=== PATIENT | female | born 1940 | race Caucasian/White ===

== ENCOUNTER 2017-07-05 19:32 | Inpatient (IN) | payer OTHER ==
[~2017-07-05] VITALS: Ht 152.4 cm; Wt 52.6 kg
[2017-07-05 20:04] LABS: BASOPHILS % (AUTO) 0.6 % (0.0-2.0); EOSINOPHILS # (AUTO) 0.1 K/uL (0.0-0.7); EOSINOPHILS % (AUTO) 1.7 % (0.0-7.0); HEMATOCRIT 30.4 % (37-47); HEMOGLOBIN 10.2 G/DL (12.0-16.0); LYMPHOCYTES # (AUTO) 1.8 K/UL (0.8-4.8); LYMPHOCYTES % (AUTO) 22.4 % (20.5-51.5); MEAN CORPUSCULAR HEMOGLOBIN 31.8 UUG (27.0-31.0); MEAN CORPUSCULAR HGB CONC 34 g/dL (32.0-37.0); MEAN CORPUSCULAR VOLUME 94.9 FL (81.0-99.0); MONOCYTES # (AUTO) 0.9 K/UL (0.1-1.30); MONOCYTES % (AUTO) 10.9 % (0.0-11.0); NEUTROPHILS # (AUTO) 5.3 K/UL (1.8-8.9); NEUTROPHILS % (AUTO) 64.4 % (38.5-71.5); PLATELET COUNT (AUTO) 274 K/UL (150-450); WHITE BLOOD COUNT (AUTO) 8.1 K/UL (4.0-11.2)
[2017-07-05] MEDS ORDERED: CALC-12 PO (20:04)
[2017-07-05] MEDS ORDERED: ALPR0.5T8 PO (20:04)
[2017-07-05] MEDS ORDERED: METF500T4 PO (20:04)
[2017-07-05 20:16] LABS: CARBON DIOXIDE 28 mmol/L (21-32); CHLORIDE 104 mmol/L (98-107); CREATININE 1.3 mg/dL (0.6-1.3); GLUCOSE 156 mg/dL (74-106); POTASSIUM 4.5 mmol/L (3.5-5.1); UREA NITROGEN, BLOOD 28 mg/dL (7-18)
[2017-07-05 20:22] LABS: ALANINE AMINOTRANSFERASE 15 U/L (14-59); ALKALINE PHOSPHATASE 58 U/L (50-136); ASPARTATE AMINOTRANSFERASE 15 U/L (15-37); BILIRUBIN,DIRECT 0.1 mg/dL (0.0-0.2); BILIRUBIN,TOTAL 0.3 mg/dL (0.2-1.0)
[2017-07-05 20:24] LABS: ACETAMINOPHEN < 2.0 ug/mL (10-30)
[2017-07-05 20:33] LABS: ETHANOL < 3 MG/DL (0-0)
--- NOTE | 2017-07-05 20:49 | NUR ---
Pt. admitted to [facility], under care of Dr. Estevez Belongs List completed
--- NOTE | 2017-07-05 20:55 | NUR ---
Admitted 77 year old female to from home in [place], [place] to [facility] nursing staff via jon. Pt is on a 5150 hold due to patient is delusional, believes that granddaughter wants to kill her and was up all night arguing with the voices. Per hold, patient sees a little girl and stated "my friend is telling me not to eat because you have poison my food." hold started on 07/06/17 at 1730 and will end on 07/08/17 at 1730. Patient is legally blind. She has Dx: HTN and DM. Patient is A/O x 2 and in no distress. She is Haitian speaker. She was compliant with admission process and provided information; however, she was unable to sign papers due to blindness. Son was present in the unit at time of admission. She requested something to eat; a Sugar-free pudding and diet cranberry juice was given to patient. Patient needs help with ambulation and ADL as she is legally blind. Patient's skin is warm dry and intact except for fungal toenail. Pt will be referred to Business Analysis [facility]st. Pr is under the care of Dr Gonzalez and Dr. Ramos. will continue to monitor. Addendum: 07/06/17 at 0653 by OBDULIA BELLAMY RN Per patient, she is blind due to cataracts in both eyes.
[2017-07-05 20:57] LABS: *BILIRUBIN,URIN NEGATIVE (NEGATIVE); *BLOOD, URINE NEGATIVE (NEGATIVE); *COLOR,URINE YELLOW (YELLOW); *KETONES,URINE NEGATIVE (NEGATIVE); *PROTEIN,URINE TRACE (NEGATIVE); *UROBILINOGEN,URINE 0.2 E.U./dl (NORMAL); LEUKOCYTE ESTERASE ,URINE 1+ (NEGATIVE); NITRITE, URINE NEGATIVE (NEGATIVE); PH,URINE 6.5 (5.0-8.0); UGLUCOSE NEGATIVE (NEGATIVE)
[2017-07-05 21:06] LABS: *CLARITY,URINE SLIGHTLY HAZY (CLEAR)
[2017-07-05 21:07] LABS: *AMPHETAMINE, URINE NEGATIVE (NEGATIVE); *BARBITURATE, URINE NEGATIVE (NEGATIVE); *CANNABINOID, URINE NEGATIVE (NEGATIVE); *COCCAINE, URINE NEGATIVE (NEGATIVE); *OPIATE, URINE NEGATIVE (NEGATIVE); *PHENCYCLIDINE SCREEN,URINE NEGATIVE (NEGATIVE)
[2017-07-05 21:08] LABS: MUCUS,URINE FEW /LPF (0-FEW); RBC,URINE 0-3 /HPF (0-3); SQUAMOUS EPITHELIAL CELL,UR FEW /HPF (NONE SEEN)
--- NOTE | 2017-07-05 21:45 | NUR ---
On interview, patient denies SI, HI AH and VH. she also denies hearing voices. Pt stated: "I had a dream, it was a dream, a bad dream.". she is currently resting comfortable in her bed. will continue to monitor.
[2017-07-05] MEDS ORDERED: CAPT50TA3 PO (22:12)
[2017-07-06 02:05] VITALS: BP 120/61
--- NOTE | 2017-07-06 06:53 | NUR ---
Pt slept 6.45hrs through the night. She had a shower this morning. No behavioral problems, no AH, VS or SI noted or reported during the shift.
[2017-07-06 07:30] VITALS: BP 134/74
[2017-07-06 07:45] LABS: ALANINE AMINOTRANSFERASE 14 U/L (14-59); ALKALINE PHOSPHATASE 62 U/L (50-136); ASPARTATE AMINOTRANSFERASE 21 U/L (15-37); BILIRUBIN,TOTAL 0.4 mg/dL (0.2-1.0); CARBON DIOXIDE 26 mmol/L (21-32); CHLORIDE 106 mmol/L (98-107); CREATININE 1.2 mg/dL (0.6-1.3); GLUCOSE 127 mg/dL (74-106); POTASSIUM 4.5 mmol/L (3.5-5.1); TOTAL PROTEIN, SERUM 7.4 g/dL (6.4-8.2); UREA NITROGEN, BLOOD 26 mg/dL (7-18)
--- NOTE | 2017-07-06 09:00 | NUR ---
Pt received laying in bed AOx2. Observed laying in bed, affect flat. Still endorsing A/H non commanding. No acute distress noted. 1:1 sitter at bedside.
--- NOTE | 2017-07-06 13:25 | NUR ---
Initial discharge instructions: Pt resides at home with her granddaughter [[address],[address];[phone]].Per pt,she would like to return back home once discharged.Spoke with pt's son,Jefe Miller [phone] who reported the pt may return once stable.SW will speak with pt,son,and MD regarding appropriate discharge plans.SW will form a safe and proper discharge.
--- NOTE | 2017-07-06 13:26 | NUR ---
UR Note: LIBBY faxed current clinicals to Mariana HERNANDEZ [ / Fx:[phone]]. Tracking# [id number].
[2017-07-06 16:00] VITALS: BP 145/58
--- NOTE | 2017-07-06 16:59 | NUR ---
DR. RICHI OBRIEN CONTACTED IN REGARDS OR MEDICATION RECONCILATION. HE REPLIED THAT HE WILL DONE IT SOON.
--- NOTE | 2017-07-06 17:20 | NUR ---
Pt observed sitting on bed, affect flat. Pt is cooperative/compliant. Pt is French speaking, per sitter pt endorsing she does believe granddaughter was trying to poison her with food. denies A/V hallucinations at this time. No acute distress noted.
[2017-07-06 19:42] VITALS: BP 141/61
--- NOTE | 2017-07-07 06:26 | NUR ---
GPS: Refused Keflex 250mg PO 6am dose despite explanation of importance. Pt.is confused,disorganized and responding to internal stimuli. 1:1 sitter for safety due to being blind. Re-directed prn. Will continue to monitor.
[2017-07-07 07:30] VITALS: BP 131/63
--- NOTE | 2017-07-07 12:41 | NUR ---
UR Note: LIBBY faxed current clinicals to Mariana HERNANDEZ [ / Fx:[phone]]. Tracking# [id number].
--- NOTE | 2017-07-07 14:14 | NUR ---
patient continues to refuse food and medication pt is very delusional , in room sleeping off and on 1;1 sitter at bedside for safety. continue to provide a safe environment.
--- NOTE | 2017-07-08 06:07 | NUR ---
GPS: Continues to refuse meds.and resistant to nursing care. Easily agitated when approached or when being offered assistance. Slept for about 1/2 hour only. Responding to internal stimuli. Refused fluids/snacks when offered despite numerous attempts. Safety emphasized.
--- NOTE | 2017-07-08 11:00 | NUR ---
PATIENT CONTINUE IN HER BED SLEEPING. QHS MEDICATION WHERE WITH-HELD DUE TO PATIENT ASLEEP. PER REPORT, PATIENT SLEPT FOR ABOUT 30 MIN LAST NIGHT. SHE CONTINUE ON 1:1 SUPERVISION FOR SAFETY. WILL CONTINUE TO MONITOR.
--- NOTE | 2017-07-08 14:02 | NUR ---
UR Note: LIBBY faxed current clinicals to Mariana HERNANDEZ [ / Fx:[phone]]. Tracking# [id number].
--- NOTE | 2017-07-08 17:58 | NUR ---
PATIENT HAS BEEN REFUSING VITALS ALL SHIFT AND WHEN HER SON CAME IN HE BROUGHT TAQUITOS AND BEANS AND PT NOW EATING , STILL REFUSING MEDS, CONTINUE 1;1 TO PROVIDE A SAFE ENVIRONMENT
--- NOTE | 2017-07-09 07:24 | NUR ---
PATIENT SLEPT FOR APPROX. 9.5HRS THROUGH THE NIGHT. SHE REFUSED KEFLEX 250MG Q8HRS PO FOR UTI. SHE ALSO REFUSED BLOOD DRAWN THIS MORNING. WILL CONTINUE TO MONITOR,
[2017-07-09 15:00] VITALS: BP 150/89
[2017-07-09 20:00] VITALS: BP 182/77
--- NOTE | 2017-07-10 06:22 | NUR ---
GPS: REMAIN CALM AND COOPERATIVE WITH CARE.REFUSED ALL MEDICATION THROUGH THE NIGHT. SLEPT ONLY 30 MIN LAST NIGHT. CONTINUE ON 1:1 SITTER @ BEDSIDE FOR SAFETY.
--- NOTE | 2017-07-10 06:45 | NUR ---
GPS: patient refused food,drink and medication through the night. charge nurse made aware.
[2017-07-10 07:30] VITALS: BP 157/79
[2017-07-10 07:55] LABS: BASOPHILS % (AUTO) 0.3 % (0.0-2.0); EOSINOPHILS # (AUTO) 0.1 K/uL (0.0-0.7); EOSINOPHILS % (AUTO) 0.8 % (0.0-7.0); HEMATOCRIT 34.5 % (37-47); HEMOGLOBIN 11.3 G/DL (12.0-16.0); LYMPHOCYTES # (AUTO) 1.7 K/UL (0.8-4.8); LYMPHOCYTES % (AUTO) 16.8 % (20.5-51.5); MEAN CORPUSCULAR HEMOGLOBIN 30.9 UUG (27.0-31.0); MEAN CORPUSCULAR HGB CONC 33 g/dL (32.0-37.0); MEAN CORPUSCULAR VOLUME 94.4 FL (81.0-99.0); MONOCYTES # (AUTO) 0.7 K/UL (0.1-1.30); NEUTROPHILS # (AUTO) 7.8 K/UL (1.8-8.9); NEUTROPHILS % (AUTO) 75.1 % (38.5-71.5)
[2017-07-10 08:03] LABS: CARBON DIOXIDE 24 mmol/L (21-32); CHLORIDE 105 mmol/L (98-107); CREATININE 1.1 mg/dL (0.6-1.3); GLUCOSE 115 mg/dL (74-106); MAGNESIUM 1.8 mg/dL (1.8-2.4); PHOSPHOROUS 3.2 mg/dL (2.5-4.9); POTASSIUM 4.3 mmol/L (3.5-5.1); UREA NITROGEN, BLOOD 33 mg/dL (7-18)
[2017-07-10 08:11] LABS: PLATELET COUNT (AUTO) 307 K/UL (150-450)
[2017-07-10 08:12] LABS: RED BLOOD CELL COUNT(AUTO) 3.66 MIL/UL (4.2-5.4); WHITE BLOOD COUNT (AUTO) 10.3 K/UL (4.0-11.2)
[2017-07-10 19:55] VITALS: BP 130/62
--- NOTE | 2017-07-11 06:15 | NUR ---
GPS: REMAIN UNCOOPERATIVE WITH MEDS DIET AND CARE. CONTINUE ON 1:1 SITTER @ BEDSIDE FOR SAFETY ALL THE TIMES. SLEPT 8 HRS THROUGH THE NIGHT. TURN Q 2 HRS FOR SKIN SAFETY AND COMFORT.ASSISTED WITH ADL'S.
[2017-07-11 07:01] LABS: BASOPHILS # (AUTO) 0.1 K/uL (0.0-8.0); BASOPHILS % (AUTO) 0.5 % (0.0-2.0); EOSINOPHILS # (AUTO) 0.2 K/uL (0.0-0.7); EOSINOPHILS % (AUTO) 2.3 % (0.0-7.0); HEMATOCRIT 36.6 % (37-47); HEMOGLOBIN 12.1 G/DL (12.0-16.0); LYMPHOCYTES # (AUTO) 2.9 K/UL (0.8-4.8); LYMPHOCYTES % (AUTO) 28.3 % (20.5-51.5); MEAN CORPUSCULAR HEMOGLOBIN 31.1 UUG (27.0-31.0); MEAN CORPUSCULAR HGB CONC 33 g/dL (32.0-37.0); MEAN CORPUSCULAR VOLUME 94.2 FL (81.0-99.0); MONOCYTES # (AUTO) 0.9 K/UL (0.1-1.30); MONOCYTES % (AUTO) 8.6 % (0.0-11.0); NEUTROPHILS # (AUTO) 6.2 K/UL (1.8-8.9); NEUTROPHILS % (AUTO) 60.3 % (38.5-71.5); PLATELET COUNT (AUTO) 313 K/UL (150-450); RED BLOOD CELL COUNT(AUTO) 3.88 MIL/UL (4.2-5.4); WHITE BLOOD COUNT (AUTO) 10.3 K/UL (4.0-11.2)
[2017-07-11 07:34] LABS: CARBON DIOXIDE 27 mmol/L (21-32); CHLORIDE 106 mmol/L (98-107); CREATININE 1.2 mg/dL (0.6-1.3); GLUCOSE 127 mg/dL (74-106); PHOSPHOROUS 3.3 mg/dL (2.5-4.9); POTASSIUM 4.3 mmol/L (3.5-5.1); UREA NITROGEN, BLOOD 37 mg/dL (7-18)
[2017-07-11 07:51] VITALS: BP 170/88
--- NOTE | 2017-07-11 12:21 | NUR ---
UR Note: LIBBY faxed current clinicals to Mariana HERNANDEZ [ / Fx:[phone]]. Tracking# [id number].
[2017-07-11 17:10] VITALS: BP 171/85
--- NOTE | 2017-07-11 18:20 | NUR ---
Pt continues to be resistive to care and remains non-compliant with PO medications. Easily agitated at times. Pt continues to have excessively poor PO intake, even with frequent encouragement. 1:1 sitter with pt at all time. Denies pain or discomfort.
[2017-07-11 20:10] VITALS: BP 165/97
--- NOTE | 2017-07-11 21:55 | NUR ---
Patient continue refusing all her medication, including Capoten 50mg PO BID for HTN; however, she was able to take Keflex 250mg PO Q6hrs for UTI. Her B/P at 1999 was 165/[address] Crystal Weber was notify at approx 2014 and new order obtained to administer Clonidine 0.5mg Patch Q7days for HTN. Order was noted and carried out with patient's consent. will continue to monitor.
--- NOTE | 2017-07-12 06:55 | NUR ---
Patient refused Keflex 250mg PO Q6hrs, She slept for approx 4.15hrs through the night. she had a shower this am.
[2017-07-12 07:30] VITALS: BP 157/79
--- NOTE | 2017-07-12 11:41 | NUR ---
UR Note: LIBBY faxed current clinicals to Mariana HERNANDEZ [ / Fx:[phone]]. Tracking# [id number].
[2017-07-12 17:05] VITALS: BP 158/75
[2017-07-12 20:00] VITALS: BP 121/58
[2017-07-13 07:30] VITALS: BP 164/82
--- NOTE | 2017-07-13 09:00 | NUR ---
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
--- NOTE | 2017-07-13 12:08 | NUR ---
UR Note: LIBBY faxed current clinicals to Mariana HERNANDEZ [ / Fx:[phone]]. Tracking# [id number].
[2017-07-13 16:00] VITALS: BP 142/71
--- NOTE | 2017-07-13 16:00 | NUR ---
REMAIN ON IM ANTIBIOTICS ORDERED WITH NO ADVERSE OR ALLERGIC REACTIONS AT THIS TIME WILL CONTINUE TO OBSERVE.
--- NOTE | 2017-07-13 18:00 | NUR ---
PATIENT REFUSED TO EAT DINNER REFUSED TO TAKE HER MEDICATIONS IM HALDOL GIVEN ORDERED PATIENT IS VERY AGGRESSIVE FIGHTING AND SCRATCHING AT THE CARE GIVERS.MADE COMFORTABLE.
[2017-07-13 20:25] VITALS: BP 128/64
--- NOTE | 2017-07-13 22:20 | NUR ---
Patient refused Divalproex 250mg PO QHS. multiple redirection were given, yet refused. will continue to monitor.
[2017-07-14 07:30] VITALS: BP 167/77
--- NOTE | 2017-07-14 10:19 | NUR ---
patient refused am meds after being crushed with boost, patient rec d haldol i IM ORDERED IF REFUSA\DAYANA BEEN QUIET SINCE MEDICATION INJECTED. CONTINUE TO MONITOR FOR SAFETY AND BEHAVIORR
--- NOTE | 2017-07-14 10:41 | NUR ---
UR Note: LIBBY faxed current clinicals to Mariana HERNANDEZ [ / Fx:[phone]]. Tracking# [id number].
[2017-07-14 16:00] VITALS: BP 169/80
[2017-07-14 20:51] VITALS: BP 154/72
[2017-07-15 07:30] VITALS: BP_SYST 142; BP_SYST 143; BP_DIAS 57; BP_DIAS 96
--- NOTE | 2017-07-15 10:50 | NUR ---
UR Note: LIBBY faxed current clinicals to Mariana HERNANDEZ [ / Fx:[phone]]. Tracking# [id number].
--- NOTE | 2017-07-15 13:37 | NUR ---
patient has been rtefusing meds and not eating foods ,so boost in small amounts given and haldol Addendum: 07/15/17 at 1342 by CHET MORENO RN jhaldol 3mg im given as ordered for not taking po with good effect after 15min pt sleepind witn un laborbed respirations. patient had moderate bowel movement with skin carecontinue 1;1 for safety
[2017-07-15 15:00] VITALS: BP 135/72
--- NOTE | 2017-07-15 18:54 | NUR ---
PATIENT BEGINNING TOO EAT MORE IN SMALL AMOUNTS AND TAKES BOOST MORE, CRUSHED MEDS IN APPLESAUCE TODAY SITTER AT BEDSIDE, CONTINUE TO MONITOR PATIENT
[2017-07-15 21:45] VITALS: BP 159/73
--- NOTE | 2017-07-15 21:49 | NUR ---
patient refused divalproex QHS. multiple redirection were given, yet refused. will continue to monitor.
[2017-07-16 07:30] VITALS: BP 154/75
[2017-07-16 16:55] VITALS: BP 158/78
[2017-07-16 19:57] VITALS: BP 158/69
--- NOTE | 2017-07-16 20:32 | NUR ---
GPS: PATIENT SPIT OUT DEPAKOTE HS PO DOSE.
[2017-07-16 22:22] VITALS: BP 128/61
--- NOTE | 2017-07-16 22:24 | NUR ---
GPS: RECHECK BLOOD PRESSURE AFTER 1 HRS CLONIDINE PATCH GIVEN. BLOOD PRESSURE 128/61 PULSE 79.
--- NOTE | 2017-07-17 06:50 | NUR ---
GPS: REMAIN UNCOOPERATIVE WITH DIET ,CARE AND MEDICATIONS. SLEPT 08:15 HRS THROUGH THE NIGHT. CONTINUE ON 1:1 SITTER @ BEDSIDE FOR SAFETY.
[2017-07-17 15:42] VITALS: BP 146/66
[2017-07-17 20:08] VITALS: BP 168/76
[2017-07-18 07:30] VITALS: BP 157/88
[2017-07-18 15:31] VITALS: BP 140/64
[2017-07-18 20:08] VITALS: BP 156/77
--- NOTE | 2017-07-18 20:26 | NUR ---
PATIENT RECEIVED IN BED AWAKE, REMAINS WITH A 1:1 SITTER FOR SAFETY. PATIENT DENIES PAIN AT THIS TIME,WILL CONTINUE TO MONITOR. NO FACIAL GRIMACING NOTED WILL CONTINUE TO MONITOR. PATIENT REMAINS ISOLATIVE/WITHDRAWN TO ROOM. NO AGGRESSIVE OR COMBATIVE BEHAVIOR NOTED WILL CONTINUE TO MONITOR AND REDIRECT NEEDED. BED IN LOWEST POSITION, BED LOCKED, AND BED ALARM ON WHILE IN BED. PATIENT HAS BEEN COOPERATIVE WITH PATIENT CARE, AND ASKING FOR "WATER."
[2017-07-19 07:30] VITALS: BP 165/82
[2017-07-19 07:47] LABS: BASOPHILS % (AUTO) 0.4 % (0.0-2.0); EOSINOPHILS # (AUTO) 0.2 K/uL (0.0-0.7); EOSINOPHILS % (AUTO) 2.6 % (0.0-7.0); HEMATOCRIT 31.8 % (31.2-41.9); HEMOGLOBIN 10.8 g/dL (10.9-14.3); LYMPHOCYTES # (AUTO) 1.5 K/uL (20.0-40.0); LYMPHOCYTES % (AUTO) 19.2 % (20.5-51.5); MEAN CORPUSCULAR HEMOGLOBIN 31.9 uug (24.7-32.8); MEAN CORPUSCULAR HGB CONC 34 g/dL (32.3-35.6); MEAN CORPUSCULAR VOLUME 94.2 fL (75.5-95.3); MONOCYTES # (AUTO) 0.6 K/uL (2.0-10.0); MONOCYTES % (AUTO) 8.3 % (0.0-11.0); NEUTROPHILS # (AUTO) 5.3 K/uL (1.8-8.9); NEUTROPHILS % (AUTO) 69.5 % (38.5-71.5); PLATELET COUNT (AUTO) 212 K/uL (179-408); RED BLOOD CELL COUNT(AUTO) 3.38 MIL/uL (3.63-4.92); WHITE BLOOD COUNT (AUTO) 7.6 K/uL (3.8-11.8)
[2017-07-19 08:26] LABS: ALANINE AMINOTRANSFERASE 14 U/L (14-59); ALKALINE PHOSPHATASE 53 U/L (50-136); ASPARTATE AMINOTRANSFERASE 25 U/L (15-37); BILIRUBIN,TOTAL 0.2 mg/dL (0.2-1.0); CARBON DIOXIDE 32 mmol/L (21-32); CHLORIDE 108 mmol/L (98-107); CREATININE 0.9 mg/dL (0.6-1.3); GLUCOSE 177 mg/dL (74-106); PHOSPHOROUS 3.2 mg/dL (2.5-4.9); POTASSIUM 3.9 mmol/L (3.5-5.1); TOTAL PROTEIN, SERUM 6.7 g/dL (6.4-8.2); UREA NITROGEN, BLOOD 37 mg/dL (7-18)
[2017-07-19 08:50] LABS: THYROID STIMULATING HORMONE 1.813 mIU/mL (0.358-3.740)
--- NOTE | 2017-07-19 11:04 | NUR ---
DC Note: Patient will be discharged to [facility] [[address] [place] [address]; [phone]] via private transportation at 1:00 pm. Spoke with Mildred at 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 Spoke with Dagmar at the facility who stated the patient would be accepted today. Spoke with patients son, Jefe [phone] who is aware and agreeable with discharge plans. Patient is aware and agreeable with discharge plans. Patient will follow-up with ([facility]) [[address] [place] [address]; ]. Patient was referred to , , and [[address] [place] [address] ;[phone]] for psychiatric outpatient referrals. Patient was also referred to Dr.Elsa Richards [[address], [place];[phone]] for outpatient therapy.
[2017-07-19 15:17] VITALS: BP 133/70
--- NOTE | 2017-07-19 16:15 | NUR ---
GPS: Nursing Notes: Discharge Notes: Patient is awake and responding to her name, denies any SI/HI, denies any AH/VH, denies any pain or discomfort, denies any SOB, needs assistance with ADL's, compliant with nursing care, ambulatory with assistance, discharge to [facility] at [address] [place] [address] , report given to Todd, healthcare administrator, [employer] insurance provided transportation, patient took all her belongings with her. 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 Patient is aware and agreeable with discharge plans. Patient will follow-up with ([facility]) [[address] [place] [address]; ]. Patient was referred to , , and [[address] [place] [address] ;[phone]] for psychiatric outpatient referrals. Patient was also referred to Dr.Elsa Richards [[address] [facility], [place], [place];[phone]] for outpatient therapy.
== END 2017-07-19 16:15 | DRG 885 ==
LOC: ER 19:32 → GPS 20:45
PROVIDERS: ADMIT Psychiatry & Neurology Psychiatry; ATTEND Nurse Practitioner Acute Care
DX: F23 Brief psychotic disorder (principal); E11.65 Type 2 diabetes mellitus with hyperglycemia; E44.0 Moderate protein-calorie malnutrition; F03.90 Unspecified dementia, unspecified severity, without behavioral disturbance, psychotic disturbance, mood disturbance, and anxiety; N39.0 Urinary tract infection, site not specified; B35.1 Tinea unguium; D64.9 Anemia, unspecified; I10 Essential (primary) hypertension; E86.0 Dehydration; H54.8 Legal blindness, as defined in USA; Z91.14 Patient's other noncompliance with medication regimen; Z68.22 Body mass index [BMI] 22.0-22.9, adult; Z79.84 Long term (current) use of oral hypoglycemic drugs; Z79.899 Other long term (current) drug therapy; H26.9 Unspecified cataract
CPT/HCPCS: 36415; 71010; 80307; 83735; 84100; 84443; 85025; 93005; A4663; G0480; G0480-TC; J0696; J1630; J3490